=== PATIENT | male | born 2005 | race Caucasian/White ===

== ENCOUNTER 2023-01-02 11:42 | Emergency (ER) | payer OTHER ==
[~2023-01-02] VITALS: Ht 175.2 cm; Wt 127.0 kg
--- NOTE | 2023-01-02 11:50 | ED Chest Pain ---
General Chief Complaint: Chest Pain Stated Complaint: CHEST PAIN | DIZZINESS Source: patient, EMS Exam Limitations: no limitations History of Present Illness Date Seen by Provider: Jan 02, 2023 Time Seen by Provider: 11:42 Initial Comments 17-year-old male presents to the ER via EMS from the [facility] with complaint of chest pain and dizziness starting this morning at 10 AM while he was sitting in class. He reports nausea and sweating with the pain. States that the pain is also located between his shoulder blades and in his left elbow. Describes the pain as a pressure. Reports that the pain is intermittent. He does report a burning sensation in his throat and mild shortness of air. Denies fevers, headache, rhinitis. He has a past medical history of hypertension and anxiety. Currently takes lisinopril, Abilify, Zoloft, sertraline, BuSpar, and omeprazole. Allergies and Home Medications Patient Home Medication List Home Medication List Reviewed: Yes Review of Systems Review of Systems Constitutional: see HPI Past Szhnbhf-Uyyncl-Esdtah Hx Patient Social History Tobacco Use?: No Substance use?: No Alcohol Use?: No Past Medical History Surgery/Hospitalization HX: gallbladder, htn Physical Exam Vital Signs Vital Signs - First Documented 01/02/23 11:43 Temp 36.9 Pulse 79 B/P (MAP) 143/68 (93) Pulse Ox 97 O2 Delivery Room Air Capillary Refill : Height, Weight, BMI Height: '" Weight: lbs. oz. kg; BMI Method: General Appearance: No Apparent Distress, WD/WN Neck: Normal Inspection, Supple Respiratory: Lungs Clear, Normal Breath Sounds, No Accessory Muscle Use, No Respiratory Distress Cardiovascular: Regular Rate, Rhythm, Normal Peripheral Pulses Extremity: Normal Inspection, Normal Range of Motion, No Pedal Edema Neurologic/Psychiatric: Alert, Normal Mood/Affect Skin: Normal Color, Warm/Dry Progress/Results/Core Measures Results/Orders Lab Results Laboratory Tests Test 01/02/23 11:43 01/02/23 13:05 Range/Units White Blood Count 10.8 4.3-11.0 10^3/uL Red Blood Count 5.60 H 4.30-5.52 10^6/uL Hemoglobin 15.4 13.3-17.7 g/dL Hematocrit 46 40-54 % Mean Corpuscular Volume 81 80-99 fL Mean Corpuscular Hemoglobin 28 25-34 pg Mean Corpuscular Hemoglobin Concent 34 32-36 g/dL Red Cell Distribution Width 12.8 10.0-14.5 % Platelet Count 250 130-400 10^3/uL Mean Platelet Volume 9.8 9.0-12.2 fL Immature Granulocyte % (Auto) 1 % Neutrophils (%) (Auto) 52 42-75 % Lymphocytes (%) (Auto) 39 12-44 % Monocytes (%) (Auto) 7 0-12 % Eosinophils (%) (Auto) 2 0-10 % Basophils (%) (Auto) 1 0-10 % Neutrophils # (Auto) 5.6 1.8-7.8 10^3/uL Lymphocytes # (Auto) 4.1 H 1.0-4.0 10^3/uL Monocytes # (Auto) 0.7 0.0-1.0 10^3/uL Eosinophils # (Auto) 0.2 0.0-0.3 10^3/uL Basophils # (Auto) 0.1 0.0-0.1 10^3/uL Immature Granulocyte # (Auto) 0.1 0.0-0.1 10^3/uL Prothrombin Time 12.2 12.2-14.7 SEC INR Comment 0.9 0.8-1.4 Activated Partial Thromboplast Time 25 24-35 SEC Sodium Level 138 135-145 MMOL/L Potassium Level 4.3 3.6-5.0 MMOL/L Chloride Level 105 98-107 MMOL/L Carbon Dioxide Level 23 21-32 MMOL/L Anion Gap 10 5-14 MMOL/L Blood Urea Nitrogen 13 7-18 MG/DL Creatinine 0.95 0.60-1.30 MG/DL Estimat Glomerular Filtration Rate 118 BUN/Creatinine Ratio 14 Glucose Level 104 70-105 MG/DL Calcium Level 9.3 8.5-10.1 MG/DL Corrected Calcium 9.0 8.5-10.1 MG/DL Magnesium Level 2.0 1.6-2.4 MG/DL Total Bilirubin 0.3 0.1-1.0 MG/DL Aspartate Amino Transf (AST/SGOT) 33 5-34 U/L Alanine Aminotransferase (ALT/SGPT) 49 0-55 U/L Alkaline Phosphatase 89 40-136 U/L Troponin I < 0.028 < 0.028 <0.028 NG/ML Total Protein 7.8 6.4-8.2 GM/DL Albumin 4.4 3.2-4.5 GM/DL My Orders Orders - RINAMICHELLE R SCIENCE EDITOR Cbc And Automated Diff (01/02/23 11:49) Magnesium (01/02/23 11:49) Chest 1 View, Ap/Pa Only (01/02/23 11:49) Ekg Tracing (01/02/23 11:49) Comprehensive Metabolic Panel (01/02/23 11:49) Protime With Inr (01/02/23 11:49) Partial Thromboplastin Time (01/02/23 11:49) Monitor-Rhythm Ecg Trace Only (01/02/23 11:49) Ed Iv/Invasive Line Start (01/02/23 11:49) Troponin I [place] (01/02/23 11:49) Troponin I [place] (01/02/23 13:00) Vital Signs/I&O 01/02/23 01/02/23 11:43 14:17 Temp 36.9 Pulse 79 71 B/P (MAP) 143/68 (93) 125/52 Pulse Ox 97 98 O2 Delivery Room Air Room Air Progress Progress Note : Progress Note Patient seen and evaluated, resting comfortably in bed, no acute distress. Based on exam and symptoms, cardiac work-up initiated including CBC, CMP, coags, magnesium, troponin, chest ray, EKG. 1407 labs and chest x-ray reviewed. CBC grossly normal. CMP grossly normal. Magnesium normal. Troponin normal x2. Coags normal. Chest x-ray shows no acute findings. Results discussed with patient and parents. I do not think that the chest pain is cardiac related based on work-up. Patient is stable for discharge. Patient instructed to follow-up with primary care provider. Discharge instructions and return precautions provided. Initial ECG Impression Date: Jan 02, 2023 Initial ECG Impression Time: 11:45 Initial ECG Rate: 79 Initial ECG Rhythm: Normal Sinus Initial ECG Intervals: Normal Initial ECG Impression: Normal Initial ECG Comparisson: No Previous ECG Available Diagnostic Imaging Diagonstic Imaging: Xray Plain Films/CT/US/NM/MRI: chest Comments [facility]. [place], [place] NAME: GRIS RYAN MED REC#: [id number] PT STATUS: REG ER : 2005 PHYSICIAN: MICHELLE FLYNN APRN ADMIT DATE: 01/02/23/ER Signed Date of Exam:01/02/23 CHEST 1 VIEW, AP/PA ONLY CHEST 1 VIEW, AP/PA ONLY Indication: Chest pain. Comparison: None available. Findings: No focal airspace disease in the visualized lungs. No pleural effusion or pneumothorax. Normal cardiomediastinal silhouette. Impression: 1. No acute cardiopulmonary process by portable radiography. Dictated by: Dictated on workstation # [id number] Dict: 01/02/23 1243 Trans: 01/02/23 1243 [facility] [id number] Interpreted by: MERCED KILLIAN MD Electronically signed by: MERCED KILLIAN MD 01/02/23 1243 Departure Impression Primary Impression: Chest pain Disposition: 01 HOME, SELF-CARE Condition: Stable Departure-Patient Inst. Decision time for Depature: 14:07 Referrals: MINISTERIO GOMEZ DO (PCP/Family) Primary Care Physician Patient Instructions: Chest Pain That Is Not Caused by the Heart (DC) Add. Discharge Instructions: Follow-up with your primary care provider. Return for severe chest pain, severe shortness of breath, or any other new, concerning, or worsening symptoms. All discharge instructions reviewed with patient and/or family. Voiced understanding. MICHELLE FLYNN APRN Jan 02, 2023 11:50
[2023-01-02 11:56] LABS: BASOPHILS # (AUTO) 0.1 10^3/uL (0.0-0.1); BASOPHILS % (AUTO) 1 % (0-10); EOSINOPHILS # (AUTO) 0.2 10^3/uL (0.0-0.3); EOSINOPHILS % (AUTO) 2 % (0-10); HEMATOCRIT 46 % (40-54); HEMOGLOBIN 15.4 g/dL (13.3-17.7); LYMPHOCYTES # (AUTO) 4.1 10^3/uL (1.0-4.0); LYMPHOCYTES % (AUTO) 39 % (12-44); MEAN CORPUSCULAR HEMOGLOBIN 28 pg (25-34); MEAN CORPUSCULAR HGB CONC 34 g/dL (32-36); MEAN CORPUSCULAR VOLUME 81 fL (80-99); MEAN PLATELET VOLUME 9.8 fL (9.0-12.2); MONOCYTES # (AUTO) 0.7 10^3/uL (0.0-1.0); MONOCYTES % (AUTO) 7 % (0-12); NEUTROPHILS # (AUTO) 5.6 10^3/uL (1.8-7.8); NEUTROPHILS % (AUTO) 52 % (42-75); PLATELET COUNT 250 10^3/uL (130-400); WHITE BLOOD COUNT 10.8 10^3/uL (4.3-11.0)
[2023-01-02 12:05] LABS: INR 0.9 (0.8-1.4); PROTHROMBIN TIME PATIENT 12.2 SEC (12.2-14.7)
[2023-01-02 12:07] LABS: ALBUMIN 4.4 GM/DL (3.2-4.5); CHLORIDE 105 MMOL/L (98-107); POTASSIUM 4.3 MMOL/L (3.6-5.0); SODIUM 138 MMOL/L (135-145)
[2023-01-02 12:09] LABS: CALCIUM 9.3 MG/DL (8.5-10.1)
[2023-01-02 12:10] LABS: GLUCOSE 104 MG/DL (70-105); TOTAL PROTEIN 7.8 GM/DL (6.4-8.2)
[2023-01-02 12:11] LABS: CARBON DIOXIDE 23 MMOL/L (21-32)
[2023-01-02 12:12] LABS: BILIRUBIN,TOTAL 0.3 MG/DL (0.1-1.0)
[2023-01-02 12:13] LABS: ALKALINE PHOSPHATASE 89 U/L (40-136); CREATININE SERUM 0.95 MG/DL (0.60-1.30); GFR ESTIMATED 118
[2023-01-02 12:14] LABS: BUN/CREATININE RATIO 14
[2023-01-02 12:16] LABS: ALANINE AMINOTRANSFERASE 49 U/L (0-55)
--- NOTE | 2023-01-02 12:45 | Diagnostic Imaging Report ---
CHEST 1 VIEW, AP/PA ONLY Indication: Chest pain. Comparison: None available. Findings: No focal airspace disease in the visualized lungs. No pleural effusion or pneumothorax. Normal cardiomediastinal silhouette. Impression: 1. No acute cardiopulmonary process by portable radiography. Dictated by: Dictated on workstation # [id number]
[2023-01-02 14:17] VITALS: BP 125/52
== END 2023-01-02 14:20 | disposition home or self-care (01) ==
LOC: ER 11:44
DX: R07.9 Chest pain, unspecified (principal); I10 Essential (primary) hypertension; F41.9 Anxiety disorder, unspecified; Z79.899 Other long term (current) drug therapy
CPT/HCPCS: 36415; 71045; 80053; 83735; 84484; 85025; 85610; 85730; 93005; 93041